=== PATIENT | male | born 2000 | race Caucasian/White ===

== ENCOUNTER 2023-12-29 11:34 | Emergency (ER) | payer SELFPAY ==
[2023-12-29] MEDS: Lidocaine 1% with EPINEPHrine 1:100,000 10 ML MDV INFILT STA (12:00)
[2023-12-29] MEDS: Lidocaine 1% with EPINEPHrine 1:200,000 30 ML SDV INFILT STA (12:00)
[2023-12-29] MEDS: Diphtheria,Pertussis(Acell),Tetanus Vaccine 0.5 ML Syringe IM ONE (12:19)
[2023-12-29] MEDS: Ondansetron 4 MG Tab.DIS PO ONE (12:41)
[2023-12-29] MEDS: Bacitracin Oint 1 GM U/D Packet TOP ONE (13:07)
[2023-12-29] MEDS ORDERED: Ibuprofen 800 MG Tab PO ONE (13:18)
== END 2023-12-29 14:49 | disposition home or self-care (01) ==
LOC: MW.ED 11:34
DX: S81.012A Laceration without foreign body, left knee, initial encounter (principal); Z75.8 Other problems related to medical facilities and other health care; Z79.899 Other long term (current) drug therapy; Z23 Encounter for immunization; W22.8XXA Striking against or struck by other objects, initial encounter
CPT/HCPCS: 12001; 90471; 90715; 99282; A9270; J3490; 99283